=== PATIENT | male | born 1985 | race Caucasian/White ===

== ENCOUNTER 2023-06-01 13:31 | Inpatient (IN) | payer OTHER ==
[2023-06-01 15:23] VITALS: BMI 23.8
[2023-06-01] MEDS ORDERED: TRIMETHOBENZAMIDE HCL 200MG/2ML INJ IM ONE (16:09)
[2023-06-01] MEDS ORDERED: DICYCLOMINE HCL 10 MG CAPSULE PO PRN (16:10)
[2023-06-01] MEDS ORDERED: BENZOCAINE/MENTHOL (CHLORASEPTIC ) LOZENGE MM PRN (16:10)
[2023-06-01] MEDS ORDERED: guaiFENesin 600 MG TABLET.ER (FP) PO PRN (16:10)
[2023-06-01] MEDS ORDERED: MAG HYDROX/AL HYDROX/SIMETH 30 ML UNIT-DOSE CUP PO PRN (16:10)
[2023-06-01] MEDS ORDERED: MAGNESIUM HYDROX 2400MG/30ML ORAL SUSPENSION 30 ML CUP PO PRN (16:10)
[2023-06-01] MEDS ORDERED: BENZONATATE 200 MG CAPSULE PO PRN (16:10)
[2023-06-01] MEDS ORDERED: LOPERAMIDE HCL 2 MG CAPSULE PO PRN (16:10)
[2023-06-01] MEDS ORDERED: POLYETHYLENE GLYCOL (HEALTHYLAX) 3350 17 GM PACKET PO PRN (16:10)
[2023-06-01] MEDS ORDERED: ACETAMINOPHEN 325 MG TABLET (FP) PO PRN (16:10)
[2023-06-01] MEDS ORDERED: IBUPROFEN 400 MG TABLET (FP) PO PRN (16:10)
[2023-06-01] MEDS ORDERED: BISMUTH SUBSALICYLATE 524 MG/30 ML PO PRN (16:10)
[2023-06-01] MEDS ORDERED: chlordiazePOXIDE HCL 25 MG CAPSULE PO PRN (16:13)
[2023-06-01] MEDS: TRIMETHOBENZAMIDE HCL 200MG/2ML INJ IM ONE (16:18)
[2023-06-01] MEDS ORDERED: ONDANSETRON *ODT* 4 MG TABLET ONE (18:06)
[2023-06-01] MEDS: ONDANSETRON *ODT* 4 MG TABLET SL PRN (18:07)
[2023-06-01] MEDS: chlordiazePOXIDE HCL 25 MG CAPSULE PO SCH ×2 (18:33→18:45)
[2023-06-01] MEDS: THIAMINE HCL 100 MG TABLET (FP) PO SCH (22:52)
[2023-06-01] MEDS: MELATONIN 5 MG TABLETS PO SCH (22:52)
[2023-06-01] MEDS: levETIRAcetam 250 MG TABLET PO SCH (22:52)
[2023-06-01] MEDS: risperiDONE 2 MG TABLET PO ONE (22:53)
[2023-06-01] MEDS: traZODone HCL 100 MG TABLET (FP) PO ONE (22:53)
[2023-06-02] MEDS: hydrOXYzine PAMOATE 25 MG CAPSULE (FP) PO PRN (05:53)
[2023-06-02] MEDS: amLODIPine BESYLATE 10 MG TABLET (FP) PO SCH (10:20)
[2023-06-02] MEDS: FOLIC ACID 1 MG TABLET (FP) PO SCH (10:20)
[2023-06-02] MEDS: PRENATAL VITAMINS W/ FOLIC ACID TABLET (FP) PO SCH (10:21)
[2023-06-02] MEDS: FLUoxetine HCL 20 MG CAPSULE PO SCH (10:58)
[2023-06-02 12:40] LABS: HEMATOCRIT 34.5 % (35.4-49); HEMOGLOBIN 11.5 GM/dL (11.7-16.9); MCH 30.7 pg (25.7-33.7); MCHC 33.3 g/dl (32.0-35.9); MEAN CELL VOLUME 91.9 fl (80-96); MEAN PLT VOLUME 11.4 fl (7.5-11.1); PLATELET COUNT 215 10^3/uL (134-434); RBC 3.75 M/mm3 (4.00-5.60); WHITE BLOOD COUNT 4.4 K/mm3 (4.0-10.0)
[2023-06-02 13:46] LABS: POTASSIUM 3.4 mmol/L (3.5-5.1)
[2023-06-02 13:48] LABS: ALBUMIN 3.4 g/dl (3.4-5.0); BLOOD UREA NITROGEN 8.6 mg/dL (7-18)
[2023-06-02 13:50] LABS: CALCIUM 8.7 mg/dL (8.5-10.1)
[2023-06-02 13:51] LABS: CREATININE 0.9 mg/dL (0.55-1.3)
[2023-06-02 13:53] LABS: BILIRUBIN,TOTAL 1.8 mg/dL (0.2-1); TOT PROT 7.5 g/dl (6.4-8.2)
[2023-06-02] MEDS: METHOCARBAMOL 500 MG TABLET PO PRN (17:36)
[2023-06-02] MEDS: risperiDONE 2 MG TABLET PO SCH (22:02)
[2023-06-02] MEDS: traZODone HCL 100 MG TABLET (FP) PO SCH (22:03)
[2023-06-03] MEDS: chlordiazePOXIDE HCL 25 MG CAPSULE PO SCH (05:25)
[2023-06-04] MEDS ORDERED: chlordiazePOXIDE HCL 10 MG CAPSULE PO PRN
[2023-06-04] MEDS: chlordiazePOXIDE HCL 10 MG CAPSULE PO SCH (05:30)
[2023-06-05] MEDS: chlordiazePOXIDE HCL 10 MG CAPSULE PO SCH (05:55)
[2023-06-06] MEDS: chlordiazePOXIDE HCL 10 MG CAPSULE PO ONE (05:19)
[2023-06-06 09:38] VITALS: BP 122/73; PULSE 117; RESP 20; TEMP 97.5
== END 2023-06-06 10:49 | disposition home or self-care (01) | DRG 775 ==
LOC: YASAS 13:31 → Y6N 17:02
PROVIDERS: ADMIT Allergy & Immunology; ATTEND Surgery
PROC: HZ2ZZZZ Detoxification Services for Substance Abuse Treatment (ICD-10-PCS; principal; 2023-06-01)
DX: F10.230 Alcohol dependence with withdrawal, uncomplicated (principal); F17.210 Nicotine dependence, cigarettes, uncomplicated; F20.9 Schizophrenia, unspecified; F10.282 Alcohol dependence with alcohol-induced sleep disorder; E87.6 Hypokalemia; I10 Essential (primary) hypertension; R56.9 Unspecified convulsions; Z86.69 Personal history of other diseases of the nervous system and sense organs; Z88.8 Allergy status to other drugs, medicaments and biological substances
CPT/HCPCS: 36415; 80053; 80305; 84132; 85027; 86780; 87635; 87811; 93005; 93010; Q0162

== ENCOUNTER 2023-06-06 16:26 | Inpatient (IN) | payer OTHER ==
[2023-06-06 17:03] VITALS: BMI 25.0
[2023-06-06] MEDS ORDERED: NALOXONE HCL 0.4 MG/ML VIAL IM PRN (18:23)
[2023-06-06] MEDS ORDERED: IBUPROFEN 400 MG TABLET (FP) PO PRN (18:23)
[2023-06-06] MEDS ORDERED: BENZONATATE 200 MG CAPSULE PO PRN (18:23)
[2023-06-06] MEDS ORDERED: guaiFENesin 600 MG TABLET.ER (FP) PO PRN (18:23)
[2023-06-06] MEDS ORDERED: NALOXONE HCL (KLOXXADO) 8 MG SPRAY NS PRN (18:23)
[2023-06-06] MEDS ORDERED: hydrOXYzine PAMOATE 25 MG CAPSULE (FP) PO PRN (18:23)
[2023-06-06] MEDS ORDERED: POLYETHYLENE GLYCOL (HEALTHYLAX) 3350 17 GM PACKET PO PRN (18:23)
[2023-06-06] MEDS ORDERED: BENZOCAINE/MENTHOL (CHLORASEPTIC ) LOZENGE MM PRN (18:23)
[2023-06-06] MEDS ORDERED: MAG HYDROX/AL HYDROX/SIMETH 30 ML UNIT-DOSE CUP PO PRN (18:23)
[2023-06-06] MEDS ORDERED: LOPERAMIDE HCL 2 MG CAPSULE PO PRN (18:23)
[2023-06-06] MEDS ORDERED: NICOTINE POLACRILEX 2 MG GUM BUC PRN (18:23)
[2023-06-06] MEDS ORDERED: ACETAMINOPHEN 325 MG TABLET (FP) PO PRN (18:23)
[2023-06-06] MEDS ORDERED: MAGNESIUM HYDROX 2400MG/30ML ORAL SUSPENSION 30 ML CUP PO PRN (18:23)
[2023-06-06] MEDS ORDERED: MELATONIN 5 MG TABLETS ONE (22:13)
[2023-06-06] MEDS: THIAMINE HCL 100 MG TABLET (FP) PO SCH (22:17)
[2023-06-06] MEDS: levETIRAcetam 250 MG TABLET PO ONE (22:17)
[2023-06-06] MEDS: MELATONIN 5 MG TABLETS PO SCH (22:17)
[2023-06-06] MEDS: levETIRAcetam 500 MG TABLET (FP) PO ONE (22:19)
[2023-06-07] MEDS: NICOTINE 14 MG/24 HOURS TOPICAL PATCH TD SCH (09:35)
[2023-06-07] MEDS: PRENATAL VITAMINS W/ FOLIC ACID TABLET (FP) PO SCH (09:35)
[2023-06-07 12:31] LABS: HEMATOCRIT 33.5 % (35.4-49); HEMOGLOBIN 10.7 GM/dL (11.7-16.9); MCH 30.3 pg (25.7-33.7); MCHC 31.9 g/dl (32.0-35.9); MEAN CELL VOLUME 95.1 fl (80-96); PLATELET COUNT 146 10^3/uL (134-434); RBC 3.52 M/mm3 (4.00-5.60); RDW 14.3 % (11.9-15.9); WHITE BLOOD COUNT 4.2 K/mm3 (4.0-10.0)
[2023-06-07 12:35] LABS: PH,URINE 7.5 (5.0-8.0); URINE APPEARANCE CLEAR; URINE BILIRUBIN NEGATIVE (NEGATIVE); URINE COLOR YELLOW; URINE GLUCOSE (UA) NEGATIVE (NEGATIVE); URINE KETONE NEGATIVE (NEGATIVE); URINE LEUK ESTERASE NEGATIVE (NEGATIVE); URINE NITRITE NEGATIVE (NEGATIVE); URINE PROTEIN NEGATIVE (NEGATIVE); URINE UROBILINOGEN 0.2 mg/dL (0.2-1.0)
[2023-06-07 12:38] LABS: CHLORIDE 106 mmol/L (98-107); POTASSIUM 3.6 mmol/L (3.5-5.1); SODIUM 142 mmol/L (136-145)
[2023-06-07 12:42] LABS: ALBUMIN 3.3 g/dl (3.4-5.0); ANION GAP 9 mmol/L (4-13); BLOOD UREA NITROGEN 10.8 mg/dL (7-18); CALCIUM 9.6 mg/dL (8.5-10.1); CO2 27 mmol/L (21-32); GLUCOSE,RANDOM 125 mg/dL (74-106)
[2023-06-07 12:44] LABS: CREATININE 0.9 mg/dL (0.55-1.3)
[2023-06-07 12:46] LABS: SGOT/AST 30 U/L (15-37); SGPT/ALT 29 U/L (13-61)
[2023-06-07 12:47] LABS: BILIRUBIN,TOTAL 0.6 mg/dL (0.2-1)
[2023-06-07 12:48] LABS: ALK PHOS 66 U/L (45-117)
[2023-06-07] MEDS: risperiDONE 2 MG TABLET PO SCH (21:09)
[2023-06-07] MEDS: traZODone HCL 100 MG TABLET (FP) PO SCH (21:09)
[2023-06-08] MEDS: FLUoxetine HCL 20 MG CAPSULE PO SCH (09:49)
[2023-06-10] MEDS: levETIRAcetam 250 MG TABLET PO SCH (10:23)
[2023-06-11] MEDS: IBUPROFEN 600 MG TABLET (FP) PO PRN (09:49)
[2023-06-13] MEDS: METHOCARBAMOL 500 MG TABLET PO PRN (13:14)
[2023-06-20] MEDS: LIDOCAINE 5% TOPICAL PATCH TP ONE (13:57)
[2023-06-20] MEDS: NALTREXONE HCL 50 MG TABLET PO ONE (13:59)
[2023-06-20] MEDS: LIDOCAINE PATCH REMOVAL MC SCH (21:19)
[2023-06-21 09:04] LABS: INR 1.14 (0.83-1.09); PROTHROMBIN TIME (PATIENT) 13.2 SEC (9.7-13.0)
[2023-06-21] MEDS: NALTREXONE HCL 50 MG TABLET PO SCH (09:49)
[2023-06-21] MEDS: LIDOCAINE 5% TOPICAL PATCH TP SCH (13:25)
[2023-06-21] MEDS: LIDOCAINE PATCH REMOVAL MC SCH (21:21)
[2023-06-22] MEDS ORDERED: AMMONIUM LACTATE 12% LOTION 225 GM BOTTLE TP PRN (13:42)
[2023-06-22] MEDS: LACTULOSE 20 GM/30 ML UDC (FOR ORAL USE ONLY) PO SCH (14:36)
[2023-06-27 06:42] VITALS: RESP 18; TEMP 97.8
[2023-06-27 09:10] VITALS: BP 106/60; PULSE 95
[2023-07-02] MEDS ORDERED: NALTREXONE MICROSPHERES (VIVITROL) 380 MG DISP.SYRIN IM ONE (10:00)
== END 2023-06-27 09:18 | disposition home or self-care (01) | DRG 772 ==
LOC: YASAS 16:26 → Y3W 22:18
PROVIDERS: ADMIT Allergy & Immunology; ATTEND Psychiatry & Neurology Pain Medicine
PROC: HZ42ZZZ Group Counseling for Substance Abuse Treatment, Cognitive-Behavioral (ICD-10-PCS; principal; 2023-06-05)
DX: F10.20 Alcohol dependence, uncomplicated (principal); F17.210 Nicotine dependence, cigarettes, uncomplicated; F20.0 Paranoid schizophrenia; E72.20 Disorder of urea cycle metabolism, unspecified; G47.00 Insomnia, unspecified; I10 Essential (primary) hypertension; M54.50 Low back pain, unspecified; G89.29 Other chronic pain; Z88.8 Allergy status to other drugs, medicaments and biological substances
CPT/HCPCS: 36415; 80053; 80177; 80305; 80307; 81003; 82140; 82652; 83735; 85027; 85610; 86780; 87635; 87811; 93005; 93010